=== PATIENT | male | born 1985 | race Caucasian/White ===

== ENCOUNTER 2019-04-30 20:19 | Emergency (ER) | payer OTHER ==
[2019-04-30] MEDS ORDERED: OXYCODONE-ACETAMINOPHEN 5-325 MG TABLET PO ONE (22:27)
[2019-04-30] MEDS ORDERED: ONDANSETRON 4 MG TAB.RAPDIS PO ONE (22:27)
--- NOTE | 2019-04-30 22:31 | ER Document Report ---
ED Medical Screen (RME) - General Chief Complaint: Abdominal Pain Stated Complaint: ABDOMINAL PAIN Time Seen by Provider: 04/30/19 22:27 Notes: 34-year-old male with chief complaint of sharp pain in the right upper quadrant pain that seems to go up into the right lower ribs. Pain is been present for 2 months intermittently but much worse recently, seen 1 week ago and told that he had a "acquired intercostal hernia". Patient currently reports very sharp pain in the right upper abdomen. Denies vomiting, fever, shortness of breath. No surgical history reported. TRAVEL OUTSIDE OF THE [place] IN LAST 30 DAYS: No - Related Data Allergies/Adverse Reactions: No Known Allergies Allergy (Unverified 04/30/19 21:11) Physical Exam - Abdominal Tenderness: Tender - Very tender over the right upper quadrant and epigastric areas, also extends with pain up over the right lower ribs. Remaining abdomen benign, exam limited by sitting position Course - Re-evaluation Re-evalutation: I have greeted and performed a rapid initial assessment of this patient. A comprehensive ED assessment and evaluation of the patient, analysis of test results and completion of the medical decision making process will be conducted by additional ED providers.
[2019-04-30 22:56] LABS: ABSOLUTE BASOPHILS # (AUTO) 0.1 10^3/uL (0.0-0.2); ABSOLUTE EOSINOPHILS # (AUTO) 0.3 10^3/uL (0.0-0.6); ABSOLUTE LYMPHOCYTES (AUTO) 3.1 10^3/uL (0.5-4.7); ABSOLUTE MONOCYTES (AUTO) 0.8 10^3/uL (0.1-1.4); ABSOLUTE NEUT (AUTO) 4.9 10^3/uL (1.7-8.2); BASOPHILS % (AUTO) 1.2 % (0-2); EOSINOPHILS % (AUTO) 3.3 % (0-6); HEMATOCRIT 44.6 % (37.9-51.0); HEMOGLOBIN 15.9 g/dL (13.5-17.0); MEAN CORPUSCULAR HEMOGLOBIN 31.7 pg (27.0-33.4); MEAN CORPUSCULAR HGB CONC 35.6 g/dL (32.0-36.0); MEAN CORPUSCULAR VOLUME 89 fl (80-97); MONOCYTES % (AUTO) 8.7 % (3-13); PLATELET COUNT 315 10^3/uL (150-450); RED BLOOD COUNT 4.99 10^6/uL (4.35-5.55); RED CELL DISTRIBUTION WIDTH 12.6 % (11.5-14.0); SEGMENTED NEUTROPHILS % (AUTO) 52.8 % (42-78); TOTAL CELLS COUNTED % (AUTO) 100 %; WHITE BLOOD COUNT 9.2 10^3/uL (4.0-10.5)
[2019-04-30 23:30] LABS: ALBUMIN 4.7 g/dL (3.5-5.0); ALKALINE PHOSPHATASE 114 U/L (38-126); ANION GAP 13 (5-19); ASPARTATE AMINO TRANSFERASE 96 U/L (17-59); BILIRUBIN,DIRECT 0.4 mg/dL (0.0-0.4); BILIRUBIN,TOTAL 0.5 mg/dL (0.2-1.3); BLOOD UREA NITROGEN 18 mg/dL (7-20); CALCIUM 9.9 mg/dL (8.4-10.2); CARBON DIOXIDE 25 mmol/L (22-30); CHLORIDE 101 mmol/L (98-107); GLUCOSE 88 mg/dL (75-110); POTASSIUM 3.9 mmol/L (3.6-5.0); TOTAL PROTEIN 7.9 g/dL (6.3-8.2)
--- NOTE | 2019-04-30 23:30 | ER Document Report ---
ED General - General Chief Complaint: Abdominal Pain Stated Complaint: ABDOMINAL PAIN Time Seen by Provider: 04/30/19 22:27 Primary Care Provider: KRISTINE NORRIS [Primary Care Provider] - Follow up as needed TRAVEL OUTSIDE OF THE [place] IN LAST 30 DAYS: No - HPI Notes: Patient is a 34-year-old male that presents to the emergency department for chief complaint of right upper quadrant abdominal pain. Patient reports pain over his right lower ribs and right upper abdomen for the last 2 to 3 months. He states initially it was intermittent but has become more constant over the last 3 weeks. Patient states he was in [place] last week and seen at an urgent care facility that told him he may have some kind of hernia. They recommended going to the emergency room for CT imaging but patient stated that he did not want to end up admitted in [place] and wanted to wait until he returned home which was yesterday. He states the pain has become more constant and severe. It is worse with any kind of movement, coughing or bearing down. He reports no nausea, vomiting or constipation. He states he does have intermittent sweats. Patient reports diarrhea on occasion as well. He denies any black or bloody stools. He denies any increased pain with eating or decreased appetite. Past Medical History: Fibromyalgia, chronic pain Past Surgical History: Negative Social History: Occasional alcohol. Denies tobacco and drug use Family History: Reviewed and noncontributory for presenting illness Allergies: Reviewed, see documented allergy list. REVIEW OF SYSTEMS: CONSTITUTIONAL : No fever No chills No diaphoresis No recent illness EENT: No vision changes No congestion No sore throat CARDIOVASCULAR: No chest pain No palpitations RESPIRATORY: No shortness of breath No cough No difficulty breathing GASTROINTESTINAL: abdominal pain No nausea No vomiting No diarrhea GENITOURINARY: No dysuria No hematuria No difficulty urinating MUSCULOSKELETAL: No back pain No leg pain No arm pain SKIN: No rashes No lesions LYMPHATIC: No swollen, enlarged glands. NEUROLOGICAL: No lightheadedness No headache No weakness No paresthesias PSYCHIATRIC: No anxiety No depression PHYSICAL EXAMINATION: Vital signs reviewed, nursing noted reviewed. GENERAL: Well-appearing, well-nourished and in no acute distress. HEAD: Atraumatic, normocephalic. EYES: Eyes appear normal, extraocular movements intact, sclera anicteric, conjunctiva are normal. ENT: nares patent, oropharynx clear without exudates. Moist mucous membranes. NECK: Normal range of motion, supple without lymphadenopathy LUNGS: Tenderness to palpation over anterior inferior right ribs at the costophrenic angles. No chest wall crepitus or deformity. Breath sounds clear to auscultation bilaterally and equal. No wheezes rales or rhonchi. HEART: Regular rate and rhythm without murmurs ABDOMEN: Soft, nontender, normoactive bowel sounds. No rebound, guarding, or rigidity. No masses appreciated. Negative Foley sign. EXTREMITIES: Nontender, good range of motion, no pitting or edema. NEUROLOGICAL: No focal neurological deficits. Moves all extremities s pontaneously Motor and sensory grossly intact on exam. PSYCH: Normal mood, normal affect. SKIN: Warm, Dry, normal turgor, no rashes or lesions noted on exposed skin - Related Data Allergies/Adverse Reactions: No Known Allergies Allergy (Unverified 04/30/19 21:11) Past Medical History - Social History Smoking Status: Never Smoker Family History: Reviewed & Not Pertinent Patient has suicidal ideation: No Patient has homicidal ideation: No Renal/ Medical History: Denies: Hx Peritoneal Dialysis Course - Re-evaluation Re-evalutation: 04/30/19 23:30 Vitals reviewed. Nursing notes reviewed. Patient was given medication in triage for pain and nausea and reports improvement in his symptoms. 05/01/19 02:52 Patient's work-up today is negative. There is no pulmonary embolism. There is no hernia. He does have tenderness to his rib cage and his pain is likely musculoskeletal. The remainder of his lab work is unremarkable. Patient encouraged to continue his home pain medicine regimen and follow closely with his primary care doctors. He has remained hemodynamically stable in the emergency room. Laboratory 04/30/19 04/30/19 22:35 22:35 WBC 9.2 RBC 4.99 Hgb 15.9 Hct 44.6 MCV 89 MCH 31.7 MCHC 35.6 RDW 12.6 Plt Count 315 Lymph % (Auto) 34.0 [place] % (Auto) 8.7 Eos % (Auto) 3.3 Baso % (Auto) 1.2 Absolute Neuts (auto) 4.9 Absolute Lymphs (auto) 3.1 Absolute Monos (auto) 0.8 Absolute Eos (auto) 0.3 Absolute Basos (auto) 0.1 Seg Neutrophils % 52.8 Sodium 138.5 Potassium 3.9 Chloride 101 Carbon Dioxide 25 Anion Gap 13 BUN 18 Creatinine 1.10 Est GFR ( Amer) > 60 Est GFR (MDRD) Non-Af > 60 Glucose 88 Calcium 9.9 Total Bilirubin 0.5 Direct Bilirubin 0.4 Neonat Total Bilirubin Not Reportable Neonat Direct Bilirubin Not Reportable Neonat Indirect Bili Not Reportable AST 96 H ALT 103 Alkaline Phosphatase 114 Total Protein 7.9 Albumin 4.7 Lipase 162.5 Abdomen Ultrasound 04/30/19 22:28 IMPRESSION: Fatty liver. Tiny gallbladder polyp. Remainder unremarkable copyright 2011 [employer]- All Rights Reserved Chest X-Ray 04/30/19 22:28 IMPRESSION: Clear lungs. Chest/Abdomen CTA 04/30/19 23:52 IMPRESSION: No aortic dissection or aneurysm. No pulmonary embolus. No pneumonia. - Laboratory Result Diagrams: 04/30/19 22:35 04/30/19 22:35 Laboratory results interpreted by me: 04/30/19 22:35 AST 96 H Discharge - Discharge Clinical Impression: Chest wall pain Condition: Stable Disposition: HOME, SELF-CARE Instructions: Chest Wall Pain ([facility]) Additional Instructions: Please return to the emergency department if you have any worsening, or concern of your symptoms. Please return to the emergency department if you develop chest pain, difficulty breathing, severe abdominal pain, or ongoing vomiting. Please follow-up with your primary care physician in 2-3 days and any other recommended physicians. If prescribed, take all medications as directed. If you have any questions or concerns do not hesitate to return the emergency department for evaluation. [] Referrals: [facility] [Primary Care Provider] - Follow up in 3-5 days
--- NOTE | 2019-04-30 23:31 | RADIOLOGY REPORT (SQ) ---
EXAM DESCRIPTION: US ABDOMEN LIMITED COMPLETED DATE/TME: 04/30/2019 22:28 CLINICAL HISTORY: 34 years, Male, RUQ pain COMPARISON: None. TECHNIQUE: Limited right upper quadrant ultrasound LIMITATIONS: None. FINDINGS: Echogenic appearance to the liver consistent with fatty infiltrative change. Nonmobile, nonshadowing echogenic focus adherent to the gallbladder wall consistent with tiny polyp. No definitive gallstones. Negative sonographic Foley sign. CBD measures 3 mm. The visualized abdominal aorta, inferior vena cava, right kidney unremarkable. No ascites IMPRESSION: Fatty liver. Tiny gallbladder polyp. Remainder unremarkable copyright 2010 [employer]- All Rights Reserved
--- NOTE | 2019-04-30 23:51 | RADIOLOGY REPORT (SQ) ---
CLINICAL HISTORY: right rib pain COMPARISON: None. TECHNIQUE: XR CHEST 2 VIEWS 04/30/2019 10:28 PM CDT FINDINGS: Cardiac silhouette is normal in size. Lungs are clear without consolidation, atelectasis, mass or edema. There is no pleural effusion. There is no pneumothorax. There are no acute osseous findings. IMPRESSION: Clear lungs.
--- NOTE | 2019-05-01 02:46 | RADIOLOGY REPORT (SQ) ---
CLINICAL HISTORY: RECENT TRAVEL, ? PE COMPARISON: None. TECHNIQUE: CT CHEST ANGIOGRAPHY WITHOUT THEN WITH IV CONTRAST on 04/30/2019 11:52 PM CDT. MIPS reconstructions were generated. This exam was performed according to our departmental dose-optimization program, which includes automated exposure control, adjustment of the mA and/or kV according to patient size and/or use of iterative reconstruction technique. MIP images were generated. FINDINGS: Thoracic aorta is normal in course and caliber without aneurysm or dissection. Pulmonary arteries are adequately opacified without acute or chronic filling defects. The heart is normal in size. There is no pericardial effusion. Intrathoracic lymph nodes are not enlarged. There is no pleural effusion, pleural thickening or pneumothorax. Central airways are patent. Lungs are clear with no consolidation, mass or interstitial lung disease. There are no acute abnormalities within the limited images of the upper abdomen. There are no acute osseous findings. No suspicious bony lesions. There is pectus excavatum deformity of the anterior chest wall. IMPRESSION: No aortic dissection or aneurysm. No pulmonary embolus. No pneumonia.
[2019-05-01 03:04] VITALS: BP 148/74
== END 2019-05-01 03:02 | disposition home or self-care (01) ==
LOC: ER 20:19
DX: R07.89 Other chest pain (principal); R10.9 Unspecified abdominal pain; R10.11 Right upper quadrant pain; R07.81 Pleurodynia; R19.7 Diarrhea, unspecified
CPT/HCPCS: 36415; 83690; 85025; 80053; 71046; 76705; 71275; S0119; 99284